=== PATIENT | female | born 1990 | race Caucasian/White ===

== ENCOUNTER 2022-10-12 15:49 | Day surgery (SDC) | payer OTHER ==
[2022-10-12 16:21] VITALS: BMI 32.7
[2022-10-12] MEDS ORDERED: hydrALAZINE 20 MG/ML VIAL SLOW IVP PRN (17:28)
[2022-10-12 20:51] LABS: #Eosinphils 0.3 10x3/uL (0.0-0.5); #Monocytes 0.6 10x3/uL (0.0-1.1); #Neutrophils 5.2 10x3/uL (1.5-8.4); %Basophils 0.4 % (0.0-2.0); %Eosinophils 3.7 % (0.0-6.0); %Lymphocytes 20.9 % (18.0-47.0); %Monocytes 7.2 % (0.0-10.0); %Neutrophils 67.2 % (40.0-75.0); Hemoglobin 10.2 g/dL (12.0-15.5); Mean Corpuscular HGB CONC 33.1 g/dL (32.0-36.0); Mean Corpuscular Hemoglobin 30.9 pg (27.0-33.0); Mean Corpuscular Volume 93.3 fl (81.6-98.3); Mean Platelet Volume 10.8 fl (7.4-10.4); Platelet Count 283 10x3/uL (150-450); RBC Distribution Width 13.9 % (11.5-14.5); White Blood Cell (WBC) Count 7.8 10x3/uL (3.5-10.5)
[2022-10-12 21:10] LABS: ALT (SGPT) 13 U/L (8-55); AST (SGOT) 17 U/L (5-34); Albumin 3.2 g/dL (3.5-5.0); Alkaline Phosphatase 86 U/L (40-110); Anion Gap 15 mmol/L (10-20); BUN (Urea Nitrogen) 11 mg/dL (7.0-18.7); Bilirubin, Total 0.3 mg/dL (0.2-1.2); Calc. Creatinine Clearance 146 mL/min (70-130); Calcium 8.5 mg/dL (7.8-10.44); Carbon Dioxide 20 mmol/L (22-29); Chloride 103 mmol/L (98-107); Estimated GFR 116; Globulin 2.8 g/dL (2.4-3.5); Glucose 68 mg/dL (70-105); Potassium 3.7 mmol/L (3.5-5.1); Sodium 134 mmol/L (136-145)
[2022-10-12 22:25] LABS: Hemoglobin A1c 4.7 % (4.0-6.0)
== END 2022-10-12 21:25 | disposition home or self-care (01) ==
LOC: CSHLD/OP 15:49
PROVIDERS: ATTEND Family Medicine
DX: Z36.89 Encounter for other specified antenatal screening (principal); O99.283 Endocrine, nutritional and metabolic diseases complicating pregnancy, third trimester; E03.9 Hypothyroidism, unspecified; O24.419 Gestational diabetes mellitus in pregnancy, unspecified control; O40.3XX0 Polyhydramnios, third trimester, not applicable or unspecified; O36.63X0 Maternal care for excessive fetal growth, third trimester, not applicable or unspecified; O99.343 Other mental disorders complicating pregnancy, third trimester; F90.9 Attention-deficit hyperactivity disorder, unspecified type; Z79.899 Other long term (current) drug therapy; Z79.84 Long term (current) use of oral hypoglycemic drugs; Z88.2 Allergy status to sulfonamides; Z3A.35 35 weeks gestation of pregnancy
CPT/HCPCS: 36415; 59025; 76819; 80053; 83036; 85025; 99282

== ENCOUNTER 2022-11-01 18:00 | Inpatient (IN) | payer OTHER ==
[2022-11-02] MEDS ORDERED: Lidocaine 1% (PF) 30 ML VIAL SC PRN (02:07)
[2022-11-02] MEDS ORDERED: hydrALAZINE 20 MG/ML VIAL SLOW IVP PRN (02:07)
[2022-11-02] MEDS ORDERED: Promethazine HCl 25 MG/ML VIAL IM PRN ×2 (02:07→22:02)
[2022-11-02] MEDS ORDERED: Tranexamic Acid 1,000 MG/10 ML VIAL IVP PRN (02:08)
[2022-11-02] MEDS ORDERED: Diphenoxylate HCl/Atropine Tablet PO PRN (02:08)
[2022-11-02] MEDS ORDERED: Misoprostol 200 MCG TAB PR PRN (02:08)
[2022-11-02] MEDS ORDERED: Acetaminophen 500 MG TAB PO PRN (02:08)
[2022-11-02] MEDS ORDERED: Methylergonovine 0.2 MG/ML VIAL IM PRN (02:08)
[2022-11-02] MEDS ORDERED: Carboprost 250 MCG/ML AMP IM PRN (02:08)
[2022-11-02] MEDS ORDERED: NS w/ Oxytocin 30 units 500 ML IV SCH ×2 (02:15)
[2022-11-02 02:34] VITALS: BMI 32.7
[2022-11-02 03:31] LABS: Hemoglobin 10.9 g/dL (12.0-15.5); Mean Corpuscular HGB CONC 33.9 g/dL (32.0-36.0); Mean Corpuscular Hemoglobin 31.5 pg (27.0-33.0); Mean Corpuscular Volume 93.1 fl (81.6-98.3); Mean Platelet Volume 11.2 fl (7.4-10.4); Platelet Count 277 10x3/uL (150-450); RBC Distribution Width 15.1 % (11.5-14.5); Red Blood Cell (RBC) Count 3.46 10x6/uL (3.90-5.03); White Blood Cell (WBC) Count 8.2 10x3/uL (3.5-10.5)
[2022-11-02] MEDS: Lactated Ringer's 1,000 ML IV SCH ×2 (03:31→15:10)
[2022-11-02] MEDS: Misoprostol 100 MCG TAB VAG SCH ×3 (03:32→15:10)
[2022-11-02] MEDS: Ondansetron PF 4 MG/2 ML Vial IVP PRN (03:32)
[2022-11-02 03:38] LABS: Glucose 101 mg/dL (70-105)
[2022-11-02] MEDS ORDERED: fentaNYL 50 mcg/mL 1 mL Vial SLOW IVP PRN ×2 (03:50→16:33)
[2022-11-02 04:03] LABS: HBSAg Index 0.13 S/CO (0-0.99); Hep B Surf Ag - L&D Non-Reactive S/CO (NonReactive)
[2022-11-02 04:04] LABS: Syphilis Antibody Nonreactive (Nonreactive); Syphilis Antibody Index 0.02 S/CO (<1.00 Non-Reactive)
[2022-11-02] MEDS: Levothyroxine Sodium 25 MCG TAB PO SCH (05:20)
[2022-11-02] MEDS: valACYclovir 500 MG TAB PO SCH (08:52)
[2022-11-02] MEDS: metFORMIN 500 MG TAB PO SCH ×3 (08:52→10:11)
[2022-11-02] MEDS ORDERED: Acetaminophen 500 MG TAB PO SCH (12:00)
[2022-11-02] MEDS: fentaNYL 50 mcg/mL 1 mL Vial SLOW IVP PRN ×2 (13:22→16:14)
[2022-11-02] MEDS ORDERED: fentaNYL 50 mcg/mL 1 mL Vial SLOW IVP SCH (17:30)
[2022-11-02] MEDS: Calcium Carbonate 500 MG ChewTAB PO PRN (19:25)
[2022-11-02] MEDS ORDERED: Fentanyl 2 mcg/Bup 0.1% Cadd 100 ML ONE (21:11)
[2022-11-02] MEDS: Fentanyl 2 mcg/Bupivacaine 0.1% Cassette 100 ML EPIDURAL SCH (22:00)
[2022-11-02] MEDS ORDERED: Lactated Ringer's 500 ML IV PRN (22:02)
[2022-11-02] MEDS ORDERED: Moisturizing Cream (Eucerin) 113 GM JAR TOP PRN (22:02)
[2022-11-02] MEDS ORDERED: ePHEDrine Sulfate 50 MG/10 ML VIAL SLOW IVP PRN (22:02)
[2022-11-02] MEDS ORDERED: Ondansetron PF 4 MG/2 ML Vial IVP PRN (22:02)
[2022-11-02] MEDS ORDERED: Acetaminophen 325 MG TAB PO PRN (22:02)
[2022-11-02] MEDS ORDERED: Naloxone HCl 0.4 mg/ml Vial IVP PRN ×2 (22:02)
[2022-11-02] MEDS ORDERED: Communication Order-Pharmacy FS SCH (22:15)
[2022-11-03] MEDS: Misoprostol 100 MCG TAB VAG SCH (00:13)
[2022-11-03] MEDS: Calcium Carbonate 500 MG ChewTAB PO PRN ×2 (00:35→22:00)
[2022-11-03] MEDS: diphenhydrAMINE 50 MG/ML VIAL IVP PRN ×5 (00:35→21:01)
[2022-11-03] MEDS: Fentanyl 2 mcg/Bupivacaine 0.1% Cassette 100 ML EPIDURAL SCH ×3 (04:44→18:52)
[2022-11-03] MEDS ORDERED: Dextrose 5%-Lactated Ringers 1,000 ML IV SCH (18:15)
[2022-11-03] MEDS: Ondansetron PF 4 MG/2 ML Vial IVP PRN (23:58)
[2022-11-04] MEDS ORDERED: Fentanyl 2 mcg/Bup 0.1% Cadd 100 ML ONE (00:44)
[2022-11-04] MEDS ORDERED: ePHEDrine Sulfate 50 MG/10 ML VIAL SLOW IVP PRN (01:02)
[2022-11-04] MEDS ORDERED: Naloxone HCl 0.4 mg/ml Vial IVP PRN ×4 (01:02→09:34)
[2022-11-04] MEDS ORDERED: Moisturizing Cream (Eucerin) 113 GM JAR TOP PRN ×2 (01:02→09:34)
[2022-11-04] MEDS ORDERED: Lactated Ringer's 500 ML IV PRN (01:02)
[2022-11-04] MEDS ORDERED: Promethazine HCl 25 MG/ML VIAL IM PRN ×2 (01:02→09:34)
[2022-11-04] MEDS ORDERED: diphenhydrAMINE 50 MG/ML VIAL IVP PRN ×2 (01:02→09:34)
[2022-11-04] MEDS ORDERED: Acetaminophen 325 MG TAB PO PRN (01:02)
[2022-11-04] MEDS ORDERED: Ondansetron PF 4 MG/2 ML Vial IVP PRN ×3 (01:02→15:01)
[2022-11-04] MEDS ORDERED: Fentanyl 2 mcg/Bupivacaine 0.1% Cassette 100 ML EPIDURAL SCH (01:15)
[2022-11-04] MEDS ORDERED: Communication Order-Pharmacy FS SCH ×2 (01:15→09:45)
[2022-11-04] MEDS ORDERED: Famotidine/PF 20 mg/2ml Vial ONE (08:45)
[2022-11-04] MEDS ORDERED: CEFAZOLIN 2 GM VIAL ONE (08:45)
[2022-11-04] MEDS ORDERED: Famotidine/PF 20 mg/2ml Vial SLOW IVP PRN (09:14)
[2022-11-04] MEDS ORDERED: Bicitra 30 ML UDCUP PO PRN (09:14)
[2022-11-04] MEDS ORDERED: CEFAZOLIN 2 GM in Sodium Chloride 0.9% 100 ML IVPB SCH (09:15)
[2022-11-04] MEDS ORDERED: Ketorolac Tromethamine 30 MG/ML VIAL IVP PRN (09:34)
[2022-11-04] MEDS ORDERED: Meperidine HCl/PF 25 MG/ML VIAL SLOW IVP PRN (09:34)
[2022-11-04] MEDS ORDERED: Naloxone HCl 0.4 mg/ml Vial IV PRN (09:34)
[2022-11-04] MEDS ORDERED: Promethazine HCl 25 MG SUPP PR PRN (09:34)
[2022-11-04] MEDS ORDERED: Ondansetron HCl/PF 4 MG/2 ML Vial IVP PRN (09:34)
[2022-11-04] MEDS ORDERED: L&D-Morphine 4 MG/ML VIAL SLOW IVP PRN (09:34)
[2022-11-04] MEDS ORDERED: fentaNYL 50 mcg/mL 1 mL Vial SLOW IVP PRN (09:40)
[2022-11-04] MEDS ORDERED: Ketorolac Tromethamine 30 MG/ML VIAL IVP SCH (09:45)
[2022-11-04] MEDS ORDERED: Morphine PF 10 MG/10 ML VIAL ONE (10:06)
[2022-11-04] MEDS ORDERED: Dexamethasone 4 mg/ml Vial ONE (10:06)
[2022-11-04] MEDS ORDERED: Oxytocin 10 UNITS/ML VIAL ONE (10:06)
[2022-11-04] MEDS ORDERED: PHENYLEPHRINE-NS 100 MCG/ML 10 ML SYRINGE ONE (10:06)
[2022-11-04] MEDS ORDERED: Ondansetron PF 4 MG/2 ML Vial ONE ×2 (10:06→11:27)
[2022-11-04] MEDS ORDERED: Azithromycin 500 MG VIAL ONE (10:33)
[2022-11-04] MEDS ORDERED: Tranexamic Acid 1,000 MG/10 ML VIAL ONE (10:43)
[2022-11-04] MEDS ORDERED: Methylergonovine 0.2 MG/ML VIAL ONE (10:43)
[2022-11-04] MEDS ORDERED: Misoprostol 200 MCG TAB PR PRN (15:01)
[2022-11-04] MEDS ORDERED: hydrALAZINE 20 MG/ML VIAL SLOW IVP PRN (15:01)
[2022-11-04] MEDS ORDERED: Methylergonovine 0.2 MG/ML VIAL IM PRN (15:01)
[2022-11-04] MEDS ORDERED: Boostrix 0.5 ML (Tdap) VIAL (>/=7 yrs of age) IM ONE (15:01)
[2022-11-04] MEDS ORDERED: diphenhydrAMINE 25 MG CAP PO PRN (15:01)
[2022-11-04] MEDS ORDERED: NS w/ Oxytocin 30 units 500 ML IV SCH (15:01)
[2022-11-04] MEDS ORDERED: Lanolin Ointment 7 GM TUBE TOP PRN (15:01)
[2022-11-04] MEDS: Levothyroxine Sodium 25 MCG TAB PO SCH (15:34)
[2022-11-04] MEDS: Misoprostol 100 MCG TAB VAG SCH ×2 (15:35→15:36)
[2022-11-04] MEDS: Ibuprofen 800 MG TAB PO SCH ×2 (15:35→23:07)
[2022-11-04] MEDS: metFORMIN 500 MG TAB PO SCH (15:36)
[2022-11-04] MEDS: valACYclovir 500 MG TAB PO SCH (15:36)
[2022-11-04] MEDS: Lactated Ringer's 1,000 ML IV SCH ×2 (15:37→15:38)
[2022-11-04] MEDS ORDERED: Bupivacaine 0.25% HCL 30 ML VIAL ONE (19:43)
[2022-11-04] MEDS: Docusate 100 MG CAP PO SCH (22:58)
[2022-11-04] MEDS: Ferrous Sulfate 325 MG TAB PO SCH (22:58)
[2022-11-04] MEDS ORDERED: Dextrose 50% Abboject 50 ML SYRINGE SLOW IVP PRN (23:17)
[2022-11-04] MEDS ORDERED: HumaLOG 300 UNITS/3 ML VIAL SC PRN (23:17)
[2022-11-04] MEDS ORDERED: Dextrose 5% in Water 1,000 ML IV PRN (23:17)
[2022-11-05] MEDS: Simethicone Chewable 80 MG TAB PO PRN ×2 (03:17→09:25)
[2022-11-05] MEDS: Ibuprofen 800 MG TAB PO SCH ×3 (03:17→20:58)
[2022-11-05] MEDS: HYDROcodone/Acetaminophen 5/325 mg Tablet PO PRN ×6 (03:18→23:45)
[2022-11-05 03:23] LABS: Mean Corpuscular HGB CONC 33.1 g/dL (32.0-36.0); Mean Corpuscular Hemoglobin 31.5 pg (27.0-33.0); Mean Corpuscular Volume 95.3 fl (81.6-98.3); Mean Platelet Volume 11.4 fl (7.4-10.4); Platelet Count 226 10x3/uL (150-450); RBC Distribution Width 15.3 % (11.5-14.5); Red Blood Cell (RBC) Count 3.17 10x6/uL (3.90-5.03); White Blood Cell (WBC) Count 12.9 10x3/uL (3.5-10.5)
[2022-11-05] MEDS: Levothyroxine Sodium 25 MCG TAB PO SCH (05:29)
[2022-11-05] MEDS: Docusate 100 MG CAP PO SCH ×2 (08:34→20:58)
[2022-11-05] MEDS: Prenatal Vitamin 1 TAB PO SCH (08:34)
[2022-11-05] MEDS: Ferrous Sulfate 325 MG TAB PO SCH ×2 (08:34→19:24)
[2022-11-05] MEDS ORDERED: Gabapentin 100 MG CAP PO PRN (09:54)
[2022-11-05] MEDS ORDERED: Ibuprofen 800 MG TAB PO SCH (14:00)
[2022-11-05] MEDS ORDERED: Lidocaine-Prilocaine 2.5% Cream 5 GM TUBE TOP PRN (14:03)
[2022-11-05] MEDS ORDERED: Furosemide 20 MG TAB PO SCH (14:15)
[2022-11-05] MEDS: Simethicone Chewable 80 MG TAB PO SCH ×3 (16:23→23:45)
[2022-11-05 17:10] LABS: ALT (SGPT) 10 U/L (8-55); AST (SGOT) 20 U/L (5-34); Albumin 2.5 g/dL (3.5-5.0); Alkaline Phosphatase 81 U/L (40-110); Anion Gap 12 mmol/L (10-20); BUN (Urea Nitrogen) 12 mg/dL (7.0-18.7); Bilirubin, Total 0.2 mg/dL (0.2-1.2); Calc. Creatinine Clearance 131 mL/min (70-130); Calcium 8.3 mg/dL (7.8-10.44); Carbon Dioxide 25 mmol/L (22-29); Chloride 108 mmol/L (98-107); Estimated GFR 102; Globulin 2.6 g/dL (2.4-3.5); Glucose 75 mg/dL (70-105); Potassium 3.9 mmol/L (3.5-5.1); Protein, Total 5.1 g/dL (6.0-8.3); Sodium 141 mmol/L (136-145)
[2022-11-05] MEDS: valACYclovir 500 MG TAB PO SCH (21:01)
[2022-11-06] MEDS: HYDROcodone/Acetaminophen 5/325 mg Tablet PO PRN ×5 (03:35→21:07)
[2022-11-06] MEDS: Simethicone Chewable 80 MG TAB PO SCH ×6 (03:36→22:36)
[2022-11-06] MEDS: Ibuprofen 800 MG TAB PO SCH ×3 (03:39→20:48)
[2022-11-06] MEDS: Levothyroxine Sodium 25 MCG TAB PO SCH (05:27)
[2022-11-06] MEDS: Docusate 100 MG CAP PO SCH ×2 (08:28→20:49)
[2022-11-06] MEDS: Prenatal Vitamin 1 TAB PO SCH (08:28)
[2022-11-06] MEDS: valACYclovir 500 MG TAB PO SCH ×2 (08:31→22:32)
[2022-11-06] MEDS: Ferrous Sulfate 325 MG TAB PO SCH ×2 (08:32→22:33)
[2022-11-07] MEDS: Simethicone Chewable 80 MG TAB PO SCH ×5 (02:39→16:57)
[2022-11-07] MEDS: HYDROcodone/Acetaminophen 5/325 mg Tablet PO PRN ×4 (02:40→16:58)
[2022-11-07] MEDS: Ibuprofen 800 MG TAB PO SCH ×2 (04:03→12:29)
[2022-11-07] MEDS: Levothyroxine Sodium 25 MCG TAB PO SCH (06:35)
[2022-11-07] MEDS: Ferrous Sulfate 325 MG TAB PO SCH (07:40)
[2022-11-07 07:43] VITALS: BP 123/77; TEMP 97.9
[2022-11-07] MEDS: Docusate 100 MG CAP PO SCH (08:00)
[2022-11-07] MEDS: valACYclovir 500 MG TAB PO SCH (08:02)
[2022-11-07] MEDS: Prenatal Vitamin 1 TAB PO SCH (08:02)
[2022-11-07] MEDS ORDERED: Loratadine 10 MG TAB PO SCH (11:00)
[2022-11-08] MEDS ORDERED: Loratadine 10 MG TAB PO SCH (09:00)
== END 2022-11-07 19:50 | disposition home or self-care (01) | DRG 787 ==
LOC: CSHLD 11-02 01:43 → CSHPP 11-04 14:56
PROVIDERS: ADMIT Obstetrics & Gynecology; ATTEND Obstetrics & Gynecology
PROC: 3E0P7VZ Introduction of Hormone into Female Reproductive, Via Natural or Artificial Opening (ICD-10-PCS; 2022-11-02)
PROC: 0U7C7ZZ Dilation of Cervix, Via Natural or Artificial Opening (ICD-10-PCS; 2022-11-03)
PROC: 10D00Z1 Extraction of Products of Conception, Low, Open Approach (ICD-10-PCS; principal; 2022-11-04)
DX: O24.425 Gestational diabetes mellitus in childbirth, controlled by oral hypoglycemic drugs (principal); O98.52 Other viral diseases complicating childbirth; Z3A.38 38 weeks gestation of pregnancy; Z37.0 Single live birth; Z79.84 Long term (current) use of oral hypoglycemic drugs; E03.9 Hypothyroidism, unspecified; O36.63X0 Maternal care for excessive fetal growth, third trimester, not applicable or unspecified; D64.9 Anemia, unspecified; K21.9 Gastro-esophageal reflux disease without esophagitis; O99.62 Diseases of the digestive system complicating childbirth; O99.02 Anemia complicating childbirth; O76 Abnormality in fetal heart rate and rhythm complicating labor and delivery; O40.3XX0 Polyhydramnios, third trimester, not applicable or unspecified; O34.13 Maternal care for benign tumor of corpus uteri, third trimester; D25.9 Leiomyoma of uterus, unspecified; O99.284 Endocrine, nutritional and metabolic diseases complicating childbirth; B00.9 Herpesviral infection, unspecified; F90.9 Attention-deficit hyperactivity disorder, unspecified type; O99.344 Other mental disorders complicating childbirth; Z79.890 Hormone replacement therapy; Z79.899 Other long term (current) drug therapy; Z88.2 Allergy status to sulfonamides; O62.2 Other uterine inertia
CPT/HCPCS: 36415; 36416; 51702; 80053; 82570; 82947; 84156; 85027; 86780; 86850; 86900; 86901; 87340; J1100; J1200; J1885; J2210; J2274; J2405; J2550; J2590; J3010; J7120; S0020